=== PATIENT | female | born 1975 | race Caucasian/White ===

== ENCOUNTER 2018-05-28 18:35 | Emergency (ER) | payer SELFPAY ==
[~2018-05-28] VITALS: Ht 160 cm; Wt 75.0 kg
[2018-05-28 18:39] VITALS: Ht 160 cm; Wt 75.0 kg
[2018-05-28] MEDS ORDERED: BUSPAR5 MG PO (18:41)
[2018-05-28 19:11] LABS: APPEARANCE CLEAR (CLEAR); BILIRUBIN NEGATIVE (NEGATIVE); COLOR YELLOW (YELLOW); GLUCOSE NEGATIVE (NEGATIVE); KETONE NEGATIVE (NEGATIVE); NITRITE NEGATIVE (NEGATIVE); PROTEIN NEGATIVE (NEGATIVE); UROBILINOGEN NORMAL (NORMAL)
[2018-05-28 19:12] LABS: WHITE CELLS - URINE 0-5 /hpf (0-5)
[2018-05-28 19:13] LABS: BACTERIA FEW /hpf (NONE SEEN); EPITHELIAL CELLS 0-5 /hpf (0-5)
[2018-05-28 19:41] LABS: BASOPHILS 0.8 % (0-2); EOSINOPHILS 2.4 % (0-7); HEMATOCRIT 34.4 % (36.0-48.0); HEMOGLOBIN 10.4 g/dL (12-16); IMMATURE GRANULOCYTES 0.2 % (0-5); LYMPHOCYTES 32.3 % (15-50); MCH 22.9 pg (26.0-34.0); MCHC 30.2 g/dL (31.0-37.0); MCV 75.8 fL (80.0-100.0); MEAN PLATELET VOLUME 9.5 fL (7.4-10.4); MONOCYTES 5.3 % (2-11); PLATELET COUNT 379 10x3/uL (130-400); RBC 4.54 10x6/uL (4.00-5.40); RDW 18.5 % (11.5-14.5); WBC 6.2 10x3/uL (4.8-10.8)
[2018-05-28 20:19] LABS: ALBUMIN 3.5 g/dL (3.4-5.0); ALKALINE PHOSPHATASE 85 U/L (46-116); ALT (SGPT) 25 U/L (10-68); BILIRUBIN - TOTAL 0.48 mg/dL (0.2-1.3); CALC OSMOLALITY 278 mosm/kg (275-300); CALCIUM 8.5 mg/dL (8.5-10.1); CARBON DIOXIDE 25.6 mmol/L (21.0-32.0); CHLORIDE - SERUM 104 mmol/L (98-107); CREATININE - SERUM 0.9 mg/dL (0.6-1.3); GLUCOSE 112 mg/dL (74-106); POTASSIUM - SERUM 3.1 mmol/L (3.5-5.1); PROTEIN - SERUM 7.5 g/dL (6.4-8.2); SODIUM 140 mmol/L (136-145); UREA NITROGEN 9 mg/dL (7-18); eGFR NON AFRICAN AMERICAN 73 mL/min (90-120)
[2018-05-28 20:22] LABS: AMYLASE - SERUM 36 U/L (25-115); LIPASE 104 U/L (73-393)
[2018-05-28 20:23] LABS: TROPONIN-I < 0.017 ng/mL (0.000-0.060)
[2018-05-28] MEDS ORDERED: HYDROCODON-ACE1 EAC2 PO (20:57)
[2018-05-28] MEDS ORDERED: MACROBID100 MG PO (20:57)
[2018-05-28 21:11] VITALS: BP 123/78
== END 2018-05-28 21:11 | disposition home or self-care (01) ==
LOC: D.ER 18:35
PROVIDERS: Emergency Medicine
DX: R31.9 Hematuria, unspecified (principal); N23 Unspecified renal colic; R10.32 Left lower quadrant pain